=== PATIENT | male | born 1945 | race Caucasian/White ===

== ENCOUNTER → 2022-10-14 | Outpatient (CLI) | payer OTHER ==
[~2022-10-14] MED LIST: AEC81 PO; CHOL200052 PO; EZET10TA48 PO; FAMO20TA8 PO; MELA10TA2 PO; METO-391 PO; ROSU40TA21 PO; TESTOSTERONE SQ; UBID50CA23 PO; ZINC220T4 PO
== END | disposition home or self-care (01) ==
LOC: SHCH 08:06
PROVIDERS: ATTEND Student in an Organized Health Care Education/Training Program
DX: R94.31 Abnormal electrocardiogram [ECG] [EKG] (principal)
CPT/HCPCS: 93306

== ENCOUNTER 2022-11-06 06:50 | Observation (INO) | payer OTHER ==
[2022-11-02 11:08] LABS: APPEARANCE,URINE CLEAR (CLEAR); BILIRUBIN,URINE NEGATIVE (NEGATIVE); COLOR,URINE LIGHT-YELLOW (YELLOW); GLUCOSE, URINE (UA) NEGATIVE (NEGATIVE); KETONES,URINE NEGATIVE (NEGATIVE); LEUKOCYTE ESTERASE ,URINE NEGATIVE Leu/uL (NEGATIVE); NITRATE,URINE NEGATIVE (NEGATIVE); OCCULT BLOOD,URINE NEGATIVE (NEGATIVE); PROTEIN,URINE NEGATIVE (NEGATIVE); UROBILINOGEN,URINE 0.2 mg/dL (0.2-1.0)
[2022-11-02 11:10] LABS: ADD UA MICROSCOPIC NO
[2022-11-02 11:14] LABS: BASOPHILS # (AUTO) 0.02 K/uL (0.00-0.20); BASOPHILS % (AUTO) 0.3 % (0.0-5.0); EOSINOPHILS # (AUTO) 0.02 K/uL (0.00-0.70); EOSINOPHILS % (AUTO) 0.3 % (0.0-8.0); IMMATURE GRANULOCYTE ABSOLUTE 0.01 K/uL (0-1); LYMPHOCYTES # (AUTO) 1.4 K/uL (1.0-4.8); LYMPHOCYTES % (AUTO) 18.9 % (21.0-51.0); MEAN CORPUSCULAR HEMOGLOBIN 31.9 pg (27.0-33.0); MEAN CORPUSCULAR HGB CONC 32.1 g/dL (32.0-36.0); MEAN CORPUSCULAR VOLUME 99.2 fL (79-99); MONOCYTES # (AUTO) 0.7 K/uL (0.1-1.0); MONOCYTES % (AUTO) 9.9 % (3.0-13.0); NEUTROPHILS # (AUTO) 5.1 K/uL (1.8-7.7); NEUTROPHILS % (AUTO) 70.5 % (40.0-77.0); PLATELET COUNT (AUTO) 94 K/uL (130-400); RED BLOOD CELL COUNT(AUTO) 4.74 MIL/uL (4.50-6.20); RED CELL DISTRIBUTION WIDTH 13.5 % (11.0-15.5); WHITE BLOOD COUNT (AUTO) 7.2 K/uL (4.8-10.8)
[2022-11-02 11:25] LABS: CREATININE 1.4 mg/dL (0.5-1.5); INR 1.05 (0.85-1.15); POTASSIUM 4.7 mmol/L (3.5-5.1); PROTHROMBIN TIME 12.1 SEC (9.6-11.6)
[2022-11-02 11:27] LABS: PARTIAL THROMBOPLASTIN TIME 30.5 SEC (26.3-35.5)
[2022-11-02 11:40] VITALS: BP 144/78; PULSE 53; RESP 16
[2022-11-02 12:10] LABS: B-TYPE NATRIURETIC PEPTIDE 93 pg/mL (0-100)
[2022-11-06] VITALS (19 sets, daily range): BP systolic 96–152; BP diastolic 69–95; PULSE 60–99; RESP 12–20; O2SAT 98
[~2022-11-06] VITALS: Ht 188 cm; Wt 78.8 kg
[2022-11-06] MEDS ORDERED: 0.9%NACL 1000ML 1,000 ML IV ONE (07:22)
[2022-11-06] MEDS ORDERED: SODIUM BICARB 50MEQ 50ML VIAL 50 ML ONE (14:09)
[2022-11-06] MEDS ORDERED: LIDOCAINE HCL 400MG/20ML VIAL ONE (14:09)
[2022-11-06] MEDS ORDERED: MEPERIDINE-PF 25 MG/ML SYG ONE (14:10)
[2022-11-06] MEDS ORDERED: NITROGLYCERIN 50MG VIAL ONE (14:10)
[2022-11-06] MEDS ORDERED: HEPARIN 10,000 UNIT/10ML (1,000 UNIT/ML) VIAL ONE (14:10)
[2022-11-06] MEDS ORDERED: MIDAZOLAM HCL 1 MG/ML 2ML VIAL ONE (14:10)
[2022-11-06] MEDS ORDERED: 0.9%NACL 1000ML 1,000 ML IV SCH (16:00)
[2022-11-06] MEDS ORDERED: MELATONIN 5 MG TABLET PO SCH (21:00)
[2022-11-06] MEDS ORDERED: EZETIMIBE 10 MG TAB PO SCH (21:00)
[2022-11-06] MEDS: ASPIRIN 81 MG EC TAB PO SCH (21:00)
[2022-11-06] MEDS ORDERED: ATORVASTATIN 40 MG TABLET PO SCH (21:00)
[2022-11-07 00:30] VITALS: BP 109/69; PULSE 79; RESP 18
[2022-11-07 03:30] VITALS: BP 104/55; PULSE 73; RESP 16
[2022-11-07 07:00] VITALS: BP 102/58; PULSE 70; RESP 20
[2022-11-07 07:52] VITALS: O2SAT 98
[2022-11-07] MEDS: ASPIRIN 81 MG EC TAB PO SCH (08:32)
[2022-11-07] MEDS ORDERED: UBIDECARENONE 50 MG PO SCH (09:00)
[2022-11-07] MEDS ORDERED: ZINC SULFATE 220 CAPSULE PO SCH (09:00)
[2022-11-07] MEDS ORDERED: CHOLECALCIFEROL 50 MCG PO SCH (09:00)
[2022-11-07] MEDS ORDERED: FAMOTIDINE 20MG TAB PO SCH (09:00)
[2022-11-07] MEDS ORDERED: METOPROLOL SUCCINATE 50 MG TAB.SR.24H PO SCH (09:00)
[2022-11-07] MEDS ORDERED: ISOVUE-300 100 ML VIAL IV ONE (09:47)
== END 2022-11-07 09:48 | disposition home or self-care (01) ==
LOC: DAH 06:50 → DAHIP 06:51 → DAH 06:51 → 2AH 16:42
PROVIDERS: ADMIT Internal Medicine; ATTEND Internal Medicine
DX: I25.10 Atherosclerotic heart disease of native coronary artery without angina pectoris (principal); I77.9 Disorder of arteries and arterioles, unspecified; I65.23 Occlusion and stenosis of bilateral carotid arteries; I10 Essential (primary) hypertension; I21.4 Non-ST elevation (NSTEMI) myocardial infarction; I48.91 Unspecified atrial fibrillation; E78.00 Pure hypercholesterolemia, unspecified; E78.5 Hyperlipidemia, unspecified; Z79.899 Other long term (current) drug therapy; Z86.73 Personal history of transient ischemic attack (TIA), and cerebral infarction without residual deficits
CPT/HCPCS: 80048; 83880; 85025; 85610; 85730; 81003; 36415; 71045; 93005 ×2; 36223; 36225; 93458; C1894; C1760; G0378 ×18; J3490 ×3; J7030; J2250; J2175; J1644; A4215; A4223 ×3; A4222; A4221; A4663; A4216; A4606; Q9967; 99156; 99157

== ENCOUNTER → 2023-07-09 | Outpatient (CLI) | payer OTHER | END | disposition home or self-care (01) | LOC: SHCH 08:36 | PROVIDERS: ATTEND Internal Medicine Cardiovascular Disease | DX: I65.23 Occlusion and stenosis of bilateral carotid arteries (principal); I73.9 Peripheral vascular disease, unspecified; Z79.899 Other long term (current) drug therapy | CPT/HCPCS: 93880 ==

== ENCOUNTER → 2023-08-29 | Outpatient (CLI) | payer OTHER ==
[2023-08-28 11:17] VITALS: BP 111/54; PULSE 51; RESP 18
[2023-08-28 11:17] LABS: BASOPHILS # (AUTO) 0.02 K/uL (0.00-0.20); BASOPHILS % (AUTO) 0.3 % (0.0-5.0); EOSINOPHILS # (AUTO) 0.01 K/uL (0.00-0.70); EOSINOPHILS % (AUTO) 0.1 % (0.0-8.0); HEMATOCRIT 50.9 % (42-54); IMMATURE GRANULOCYTE ABSOLUTE 0.01 K/uL (0-1); MEAN CORPUSCULAR HEMOGLOBIN 32.2 pg (27.0-33.0); MEAN CORPUSCULAR HGB CONC 32.4 g/dL (32.0-36.0); MEAN CORPUSCULAR VOLUME 99.4 fL (79-99); MONOCYTES # (AUTO) 0.9 K/uL (0.1-1.0); MONOCYTES % (AUTO) 11.2 % (3.0-13.0); NEUTROPHILS # (AUTO) 5.7 K/uL (1.8-7.7); NEUTROPHILS % (AUTO) 75.3 % (40.0-77.0); PLATELET COUNT (AUTO) 111 K/uL (130-400); RED BLOOD CELL COUNT(AUTO) 5.12 MIL/uL (4.50-6.20); RED CELL DISTRIBUTION WIDTH 13.9 % (11.0-15.5); WHITE BLOOD COUNT (AUTO) 7.6 K/uL (4.8-10.8)
[2023-08-28 11:23] LABS: CREATININE 1.6 mg/dL (0.5-1.3); POTASSIUM 5.3 mmol/L (3.5-5.1)
[2023-08-28 11:51] LABS: INR 1.04 (0.85-1.15); PROTHROMBIN TIME 12.2 SEC (9.6-11.6)
[2023-08-28 11:52] LABS: PARTIAL THROMBOPLASTIN TIME 30.3 SEC (26.3-35.5)
[~2023-08-29] VITALS: Ht 182.9 cm; Wt 79.1 kg
[~2023-08-29] MED LIST changes: +AMIO200T68 PO; +APIX5TAB PO; +CHOL300T PO; -MELA10TA2 PO; +MELA1TAB73 PO; +PSYL0.4C2 PO; -ROSU40TA21 PO; +ROSU40TA70 PO; +TEST200V21 IM; -TESTOSTERONE SQ; +UBID100C45 PO; -UBID50CA23 PO; -ZINC220T4 PO
== END | disposition home or self-care (01) ==
LOC: EDSTATUS 08-28 13:00 → DAH 08:06 → LAB 08:06 → DAH 08:49
PROVIDERS: ATTEND Internal Medicine Cardiovascular Disease
DX: Z01.812 Encounter for preprocedural laboratory examination (principal); I48.3 Typical atrial flutter; R00.1 Bradycardia, unspecified; Z79.01 Long term (current) use of anticoagulants
CPT/HCPCS: 36415; 80048; 85025; 85610; 85730; 93005

== ENCOUNTER → 2024-02-15 | Outpatient (CLI) | payer OTHER ==
[~2024-02-15] MED LIST changes: -ROSU40TA70 PO; +ROSU40TA88 PO
--- NOTE | 2024-02-15 11:47 | HMCIMG ---
CHEST 2VWS HISTORY: Atrial fibrillation COMPARISON: 11/02/2022 FINDINGS: Frontal and lateral projections of the chest were obtained. There is no acute pulmonary infiltrates or failure. The heart is borderline enlarged. Aortic calcifications are seen. Degenerative changes are seen of the thoracolumbar spine. IMPRESSION: 1. No acute pulmonary infiltrates.
== END | disposition home or self-care (01) ==
LOC: RAH 09:37
PROVIDERS: ATTEND Internal Medicine Cardiovascular Disease
DX: I48.0 Paroxysmal atrial fibrillation (principal); I70.0 Atherosclerosis of aorta; M47.815 Spondylosis without myelopathy or radiculopathy, thoracolumbar region
CPT/HCPCS: 71046